=== PATIENT | female | born 1975 | race Two or more races ===

== ENCOUNTER 2021-04-27 05:36 | Emergency (ER) | payer OTHER ==
--- NOTE | 2021-04-27 05:46 | ED ---
Recheck HPI - General Stated Complaint: Covid Test Time Seen by Provider: 04/27/21 05:39 Source: RN notes reviewed, old records reviewed Limitations: no limitations - History of Present Illness Initial Comments: This is a 45-year-old female to the emergency department for evaluation today. Patient's a symptomatic presenting for coronavirus test. Patient needs coronavirus testing to get into [facility] Complaint: medication refill request (Coronavirus testing) -: minutes(s) Returns Today for: other (none) Symptoms Since Prior Visit: no new symptoms Context: planned re-check Associated Symptoms: none Treatments Prior to Arrival: other (none) - Related Data Allergies Allergy/AdvReac Type Severity Reaction Status Date / Time Penicillins Allergy Rash/Hives Verified 04/27/21 05:58 Review of Systems ROS Statement: Those systems with pertinent positive or pertinent negative responses have been documented in the HPI. ROS Other: All systems not noted in ROS Statement are negative. General Exam General appearance: alert, in no apparent distress Head exam: Present: atraumatic, normocephalic, normal inspection Eye exam: Present: normal appearance, PERRL, EOMI. Absent: scleral icterus, conjunctival injection, periorbital swelling ENT exam: Present: normal exam, mucous membranes moist Neck exam: Present: normal inspection. Absent: tenderness, meningismus, lymphadenopathy Respiratory exam: Present: normal lung sounds bilaterally. Absent: respiratory distress, wheezes, rales, rhonchi, stridor Cardiovascular Exam: Present: regular rate, normal rhythm, normal heart sounds. Absent: systolic murmur, diastolic murmur, rubs, gallop, clicks GI/Abdominal exam: Present: soft, normal bowel sounds. Absent: distended, tenderness, guarding, rebound, rigid Extremities exam: Present: normal inspection, full ROM, normal capillary refill. Absent: tenderness, pedal edema, joint swelling, calf tenderness Back exam: Present: normal inspection Neurological exam: Present: alert, oriented X3, CN II-XII intact Psychiatric exam: Present: normal affect, normal mood Skin exam: Present: warm, dry, intact, normal color. Absent: rash Course Vital Signs 04/27/21 05:56 Temperature 97.8 F Pulse Rate 87 Respiratory 22 Rate Blood Pressure 159/67 O2 Sat by Pulse 97 Oximetry - Reevaluation(s) Reevaluation #1: 04/27/21 Medical record is reviewed Patient informed of results and questions answered Medical Decision Making - Medical Decision Making 45 female to the ER for evaluation regards to coronavirus testing, testing is negative patient can be discharged home - Lab Data Lab Results 04/27/21 Range/Units 06:00 Coronavirus (PCR) Not Detected (Not Detectd) Disposition Clinical Impression: Normal exam Disposition: HOME SELF-CARE Condition: Good Instructions (If sedation given, give patient instructions): Normal Exam (ED) Is patient prescribed a controlled substance at d/c from ED?: No Referrals: None,Stated [Primary Care Provider] - 1-2 days
[2021-04-27 05:58] VITALS: BP 159/67; PULSE 87; RESP 22; TEMP 97.8
== END 2021-04-27 07:20 | disposition home or self-care (01) ==
LOC: EC 05:36
DX: Z20.822 Contact with and (suspected) exposure to COVID-19 (principal); Z88.0 Allergy status to penicillin
CPT/HCPCS: 87635; 99282